=== PATIENT | female | born 1960 | race Caucasian/White ===

== ENCOUNTER 2022-05-12 10:49 | Emergency (ER) | payer BC, OTHER ==
[~2022-05-12] VITALS: Ht 167.6 cm; Wt 95.3 kg
[2022-05-12] MEDS ORDERED: ETOMIDATE (2MG/ML) 20ML VIAL IV ONE (13:00)
[2022-05-12] MEDS ORDERED: MORPHINE SULFATE 4 MG/ML SYR/VIAL IV ONE (14:15)
[2022-05-12] MEDS ORDERED: ONDANSETRON HCL 4 MG/2 ML VIAL IV ONE (14:15)
[2022-05-12 15:00] VITALS: BP 125/49
[2022-05-12] MEDS ORDERED: HYDR1TAB97 PO (15:06)
== END 2022-05-12 15:54 | disposition home or self-care (01) ==
LOC: ER 10:49
DX: S52.502A Unspecified fracture of the lower end of left radius, initial encounter for closed fracture (principal); Z88.0 Allergy status to penicillin; Z88.8 Allergy status to other drugs, medicaments and biological substances; W19.XXXA Unspecified fall, initial encounter; Y93.89 Activity, other specified; Y92.89 Other specified places as the place of occurrence of the external cause; Y99.8 Other external cause status
CPT/HCPCS: 25605; 73110; 96374; 96375; 99285; J2270; J2405